=== PATIENT | female | born 1970 | race Two or more races ===

== ENCOUNTER 2016-10-22 14:26 | Emergency (ER) | payer OTHER ==
[~2016-10-22] VITALS: Ht 165.1 cm; Wt 86.2 kg
[~2016-10-22 14:26] MED LIST: IBUPROFEN600 MG ORAL; NORCO 5-325 TA1 EAC1 ORAL; NORCO 5-325 TA1 EACH ORAL; TRAMADOL HCL50 MG ORAL; VALIUM5 MG ORAL
[2016-10-22] MEDS ORDERED: BENAZEPRIL HCL10 MG ORAL (14:48)
[2016-10-22] MEDS ORDERED: ATORVASTATIN CA40 MG ORAL (14:48)
[2016-10-22] MEDS ORDERED: SERTRALINE HCL25 MG ORAL (14:48)
[2016-10-22] MEDS ORDERED: METFORMIN HCL1000 M1 ORAL (14:48)
[2016-10-22] MEDS ORDERED: METFORMIN HCL500 M1 ORAL (14:48)
[2016-10-22] MEDS ORDERED: GLIPIZIDE5 MG ORAL (14:48)
[2016-10-22 14:52] VITALS: BP 142/88
--- NOTE | 2016-10-22 15:13 | Emergency Room Report ---
History of Present Illness General Chief Complaint: Nausea Source: Patient Present Illness HPI The patient is a 46-year-old female presenting for upper abdominal pain and nausea which began after taking diet pills with green tea 2 days prior. The patient describes upper mid abdominal pain as a 5/10 dull ache which occasionally radiates upwards to the mid chest. The patient does admit to a history of GERD and states that this feels similar. The patient denies any other symptoms including vomiting, fever, chills, diarrhea, constipation, rash, CP, SOB, flank pain, dysuria, vaginal DC Allergies: Coded Allergies: No Known Allergies (Unverified , 06/18/14) Patient History Past Medical History: see triage record Pertinent Family History: none Last Menstrual Period: irregular period Now: No Reviewed Nursing Documentation: PMH: Agreed, PSxH: Agreed Nursing Documentation-PMH Past Medical History: No History, Except For Hx Hypertension: Yes Hx Diabetes: Yes Review of Systems All Other Systems: negative except mentioned in HPI Physical Exam Vital Signs Date Time Temp Pulse Resp B/P Pulse Ox O2 Delivery O2 Flow Rate FiO2 10/22/16 14:41 97.9 80 14 142/88 96 Room Air Sp02 EP Interpretation: reviewed, normal General Appearance: no apparent distress, alert, GCS 15, non-toxic Head: normocephalic, atraumatic Eyes: bilateral eye PERRL, bilateral eye normal inspection ENT: hearing grossly normal, normal pharynx, no angioedema, normal voice Gastrointestinal: normal inspection, normal bowel sounds, soft, no mass, non- distended, no guarding, tenderness - epigastric Rectal: deferred Genitourinary: normal inspection, no CVA tenderness Musculoskeletal: back normal, gait/station normal, normal range of motion, non- tender Neurologic: alert, oriented x3, responsive, motor strength/tone normal, sensory intact, speech normal Psychiatric: judgement/insight normal, memory normal, mood/affect normal, no suicidal/homicidal ideation Skin: normal color, no rash, warm/dry, well hydrated Lymphatic: no adenopathy Medical Decision Making PA Attestation Dr. Hinton is my supervising physician. Patient management was discussed with my supervising physician Diagnostic Impression: Primary Impression: GERD (gastroesophageal reflux disease) Qualified Codes: K21.9 - Gastro-esophageal reflux disease without esophagitis ER Course The patient is a 46-year-old female presenting for upper abdominal pain and nausea which began after taking diet pills with green tea 2 days prior Differential diagnoses considered include but not limited to GERD, gastritis, pancreatitis, appendicitis, , UTI PE: Vitals WNL. NAD. Abdomen: Normal appearance. Non distended. No ecchymosis. Normal BS. No McBurney point tenderness. No guarding. TTP over epigastric region only. No CVA tenderness The patient is given Zofran and a GI cocktail and states that she is feeling much better. The patient is instructed to stop taking the diet pills. Patient will be discharged home with a prescription for pepcid and omeprazole.ER precautions given Last Vital Signs Date Time Temp Pulse Resp B/P Pulse Ox O2 Delivery O2 Flow Rate FiO2 10/22/16 14:41 97.9 80 14 142/88 96 Room Air Status: improved Disposition: HOME, SELF-CARE Condition: Improved Scripts Omeprazole (OMEPRAZOLE) 20 Mg Capsule.dr 20 MG ORAL DAILY, #14 CAP Prov: EVA FLETCHER 10/22/16 Famotidine (PEPCID) 40 Mg Tablet 40 MG PO DAILY, #7 TAB 0 Refills Prov: EVA FLETCHER 10/22/16 Referrals: NON PHYSICIAN (PCP) EVA FLETCHER Oct 22, 2016 15:13
[2016-10-22] MEDS ORDERED: Dicyclomine HCl 10mg/5ml oral soln ORAL ONE (15:15)
[2016-10-22] MEDS ORDERED: Lidocaine 2% Visc 15ml soln ORAL ONE (15:15)
[2016-10-22] MEDS ORDERED: Mylanta II UD 30ml ORAL ONE (15:15)
[2016-10-22] MEDS ORDERED: OMEPRAZOLE20 M2 ORAL (15:47)
[2016-10-22] MEDS ORDERED: PEPCID40 MG PO (15:47)
[2016-10-22 16:12] VITALS: BP 138/79
[2016-10-22 16:15] VITALS: BP 142/88
== END 2016-10-22 16:15 | disposition home or self-care (01) ==
LOC: EMR 15:09
DX: K21.9 Gastro-esophageal reflux disease without esophagitis (principal); I10 Essential (primary) hypertension; E11.9 Type 2 diabetes mellitus without complications
CPT/HCPCS: 81025; 99284

== ENCOUNTER 2017-07-23 13:41 | Emergency (ER) | payer MEDICAID, OTHER ==
[~2017-07-23] VITALS: Ht 165.1 cm; Wt 82.6 kg
[~2017-07-23 13:41] MED LIST changes: +ATORVASTATIN CA40 MG ORAL; +BENAZEPRIL HCL10 MG ORAL; +GLIPIZIDE5 MG ORAL; +METFORMIN HCL1000 M1 ORAL; +METFORMIN HCL500 M1 ORAL; +OMEPRAZOLE20 M2 ORAL; +PEPCID40 MG PO; +SERTRALINE HCL25 MG ORAL
[2017-07-23 13:48] VITALS: BP 143/80
[2017-07-23] MEDS ORDERED: BACTRIM DS TAB1 EAC1 ORAL (14:09)
[2017-07-23] MEDS ORDERED: CEPHALEXIN500 MG ORAL (14:09)
[2017-07-23] MEDS ORDERED: IBUPROFEN600 MG ORAL (14:09)
[2017-07-23 14:16] VITALS: BP 133/78
--- NOTE | 2017-07-23 14:33 | Emergency Room Report ---
History of Present Illness General Chief Complaint: Skin Rash/Abscess Source: Patient, Medical Record Present Illness HPI The patient is a 47-year-old female presenting for pain under the left arm which began yesterday. She denies any injury to the area but did notice insect bites in this area in the past week. She has also noticed swelling to the area. Pain is a 9/10 sharp sensation it is worse with touch. Does not radiate. She admits to subjective fever but denies chills. She denies any other symptoms Allergies: Coded Allergies: No Known Allergies (Unverified , 06/18/14) Patient History Past Medical History: see triage record Pertinent Family History: none Last Menstrual Period: 04/01/17 Reviewed Nursing Documentation: PMH: Agreed, PSxH: Agreed Nursing Documentation-PMH Past Medical History: No History, Except For Hx Hypertension: Yes Hx Diabetes: Yes Review of Systems All Other Systems: negative except mentioned in HPI Physical Exam Vital Signs Date Time Temp Pulse Resp B/P (MAP) Pulse Ox O2 Delivery O2 Flow Rate FiO2 07/23/17 13:48 98.4 74 18 143/80 98 Room Air Sp02 EP Interpretation: reviewed, normal General Appearance: no apparent distress, alert, GCS 15, non-toxic Head: normocephalic, atraumatic Eyes: bilateral eye normal inspection, bilateral eye PERRL ENT: hearing grossly normal, normal pharynx, no angioedema, normal voice Neck: full range of motion, supple/symm/no masses Musculoskeletal: back normal, gait/station normal, normal range of motion, non- tender Neurologic: alert, oriented x3, responsive, motor strength/tone normal, sensory intact, speech normal Psychiatric: judgement/insight normal, memory normal, mood/affect normal, no suicidal/homicidal ideation Skin: normal color, no rash, other - TTP to the L axilla Lymphatic: no adenopathy Medical Decision Making PA Attestation Dr. Sullivan is my supervising physician. Patient management was discussed with my supervising physician Diagnostic Impression: Primary Impression: Abscess ER Course The patient is a 47-year-old female presenting for pain under the left arm Differential diagnoses considered but not limited to: abscess, cellulitis, insect bite, contact dermatitis, among others PE: Afebrile. NAD There is tenderness to palpation to the left axilla. No erythema. No induration or fluctuance. There is some soft tissue swelling. The patient will be discharged home with prescription for Keflex and Bactrim and will followup with her primary doctor. I informed her that if symptoms do not improve, she may have to have imaging done to this area. Last Vital Signs Date Time Temp Pulse Resp B/P (MAP) Pulse Ox O2 Delivery O2 Flow Rate FiO2 07/23/17 14:16 98.4 71 16 133/78 99 Room Air Status: improved Disposition: HOME, SELF-CARE Condition: Improved Scripts Ibuprofen* (MOTRIN*) 600 Mg Tablet 600 MG ORAL Q8H Y for For Pain, #30 TAB 0 Refills Prov: EVA FLETCHER.A. 07/23/17 Cephalexin* (KEFLEX*) 500 Mg Capsule 500 MG ORAL EVERY 12 HOURS, #14 CAP 0 Refills Prov: EVA FLETCHER.A. 07/23/17 Trimethoprim/Sulfamethoxazole 160/800* (BACTRIM DS TABLET*) 1 Each Tablet 1 TAB ORAL TWICE A DAY, #14 TAB Prov: EVA FLETCHERA. 07/23/17 Referrals: [facility]ERR[facility] (PCP) Patient Instructions: Abscess Additional Instructions: I discussed my findings with the patient. All questions and concerns have been answered. Treatment and medication compliance have been addressed. I advised the patient that they need to follow up with PMD in 3-5 days. Return to ED if symptoms worsen, new symptoms arise such as fever, or if needed for any reason. Patient verbalized understanding of discharge instructions. EVA FLETCHER Jul 23, 2017 14:33
== END 2017-07-23 14:20 | disposition home or self-care (01) ==
LOC: EMR 14:05
DX: L02.414 Cutaneous abscess of left upper limb (principal); I10 Essential (primary) hypertension; E11.9 Type 2 diabetes mellitus without complications
CPT/HCPCS: 99284

== ENCOUNTER 2018-11-12 07:39 | Emergency (ER) | payer MEDICAID ==
[~2018-11-12] VITALS: Ht 165.1 cm; Wt 85.7 kg
[~2018-11-12 07:39] MED LIST changes: +BACTRIM DS TAB1 EAC1 ORAL; +CEPHALEXIN500 MG ORAL
[2018-11-12 07:59] VITALS: BP 134/77
--- NOTE | 2018-11-12 08:01 | NUR ---
ED Nurse Note:pt. came with abscess on right thumb, no drainage
[2018-11-12] MEDS ORDERED: IBUPROFEN600 MG ORAL (08:02)
[2018-11-12] MEDS ORDERED: AUGMENTIN 875-1 EAC1 ORAL (08:02)
--- NOTE | 2018-11-12 08:06 | Emergency Room Report ---
History of Present Illness General Chief Complaint: Skin Rash/Abscess Source: Patient Present Illness HPI Patient present with complaints of discomfort to her right thumb Reports that she was chewing on her thumb last few days and noticed the area get red today Pain is worse with movement denies any fevers or chills and eyes any wrist pain denies any other trauma Allergies: Coded Allergies: No Known Allergies (Unverified , 06/18/14) Patient History Past Medical History: see triage record Pertinent Family History: none : 4 Reviewed Nursing Documentation: PMH: Agreed; PSxH: Agreed Nursing Documentation-PMH Hx Hypertension: Yes - hyperlipidemia Hx Diabetes: Yes History Of Psychiatric Problem: Yes - depression Review of Systems All Other Systems: negative except mentioned in HPI Physical Exam Vital Signs Date Time Temp Pulse Resp B/P (MAP) Pulse Ox O2 Delivery O2 Flow Rate FiO2 11/12/18 07:42 98.4 76 19 134/77 95 Room Air Sp02 EP Interpretation: reviewed, normal General Appearance: well appearing, no apparent distress Head: normocephalic, atraumatic Eyes: bilateral eye PERRL, bilateral eye EOMI ENT: normal pharynx Neck: supple Cardiovascular #1: regular rate, rhythm Musculoskeletal: other - Small area of erythema at the MIP region dorsally and medially on the right thumb, appears to have almost callus appearance to it with mild underlying erythema, the nailbed is not involved patient is able to move the digit with some discomfort, Neurologic: alert, oriented x3, responsive Skin: other - As above Lymphatic: no adenopathy Procedures Splinting Splinting : Consent: Verbal Location: Right thumb Pre-Made Type: finger splint Splint: Pre-Proc Neuro Vasc Exam: normal Post-Proc Neuro Vasc Exam: normal Patient Tolerated: Well Complications: None Medical Decision Making Diagnostic Impression: Primary Impression: cellulitis ER Course Given that the patient was biting the area some concern about possible early infection No obvious signs of tenosynovitis or abscess formation Patient also had a splint applied for improved sensation and requires close outpatient follow-up Last Vital Signs Date Time Temp Pulse Resp B/P (MAP) Pulse Ox O2 Delivery O2 Flow Rate FiO2 11/12/18 07:59 98.4 78 19 134/77 95 Room Air Status: improved Disposition: HOME, SELF-CARE Condition: Improved Scripts Ibuprofen* (MOTRIN*) 600 Mg Tablet 600 MG ORAL Q8H PRN for For Pain, #20 TAB 0 Refills Prov: Breana Sullivan DO 11/12/18 Amoxicillin/Potassium Clav 875-125* (AUGMENTIN 875-125 TABLET*) 1 Each Tablet 1 TAB ORAL TWICE A DAY, #14 TAB Prov: Breana Sullivan DO 11/12/18 Patient Instructions: Cellulitis, [id number] Additional Instructions: Patient is provided with the discharge instructions notified to follow up with primary doctor in the next 2-3 days otherwise return to the er with any worsening symptoms. Please note that this report is being documented using [employer] technology. This can lead to erroneous entry secondary to incorrect interpretation by the dictating instrument. Breana Sullivan DO Nov 12, 2018 08:06
--- NOTE | 2018-11-12 08:30 | NUR ---
ER DISCHARGE NOTE: Patient is cleared to be discharged per ERMD, pt is aox4, on room air, with stable vital signs. pt was given dc and prescription instructions, pt was able to verbalize understanding, pt is able to ambulate with steady gait. pt took all belongings.
[2018-11-12 11:21] VITALS: BP 134/77
== END 2018-11-12 08:30 | disposition home or self-care (01) ==
LOC: EMR 08:12
DX: L03.011 Cellulitis of right finger (principal); E11.9 Type 2 diabetes mellitus without complications; I10 Essential (primary) hypertension; F32.9 Major depressive disorder, single episode, unspecified; E78.5 Hyperlipidemia, unspecified
CPT/HCPCS: 29130; 99282

== ENCOUNTER 2020-03-03 12:05 | Emergency (ER) | payer MEDICAID ==
[~2020-03-03] VITALS: Ht 165.1 cm; Wt 88.5 kg
[~2020-03-03 12:05] MED LIST changes: +AUGMENTIN 875-1 EAC1 ORAL
[2020-03-03 12:25] VITALS: BP 123/75
[2020-03-03 13:13] LABS: APPEARANCE,URINE CLEAR; BILIRUBIN, URINE NEGATIVE (NEGATIVE); COLOR,URINE PALE YELLOW; GLUCOSE, URINE (UA) 4+ (NEGATIVE); KETONES,URINE NEGATIVE (NEGATIVE); LEUKOCYTE ESTERASE ,URINE 1+ (NEGATIVE); NITRITE,URINE NEGATIVE (NEGATIVE); PH,URINE 5 (4.5-8.0); PROTEIN,URINE 1+ (NEGATIVE); UROBILINOGEN,URINE NORMAL MG/DL (0.0-1.0)
[2020-03-03] MEDS ORDERED: PHENAZOPYRIDIN100 MG ORAL (13:26)
[2020-03-03] MEDS ORDERED: CEPHALEXIN500 MG ORAL (13:26)
--- NOTE | 2020-03-03 13:27 | Emergency Room Report ---
History of Present Illness General Chief Complaint: Female Urogenital Problems Source: Patient Present Illness HPI Patient presents with complaints of burning with urination over the past 3 days she now has seen small tinges of blood she complains of burning with urination still Denies any chest pain or shortness of breath denies any vomiting denies any diarrhea denies any abdominal pain denies any flank pain denies any trauma Allergies: Coded Allergies: No Known Allergies (Unverified , 06/18/14) COVID-19 Screening Contact w/high risk pt: No Recent Travel to affected area: No Experienced COVID-19 symptoms?: No COVID-19 Testing performed STRAIGHTENER HAND: Yes - 02/05/2020 COVID-19 Screening: Negative COVID-19 COVID-19 Testing Source: nasopharyngeal Patient History Past Medical History: see triage record Last Menstrual Period: 2016 Reviewed Nursing Documentation: PMH: Agreed; PSxH: Agreed Nursing Documentation-PM Past Medical History: No History, Except For Hx Hypertension: Yes Hx Diabetes: Yes Review of Systems All Other Systems: negative except mentioned in HPI Physical Exam Vital Signs Date Time Temp Pulse Resp B/P (MAP) Pulse Ox O2 Delivery O2 Flow Rate FiO2 03/03/20 12:10 98.8 77 18 123/75 (91) 100 Room Air Sp02 EP Interpretation: reviewed, normal General Appearance: well appearing, no apparent distress Head: normocephalic, atraumatic Eyes: bilateral eye PERRL, bilateral eye EOMI ENT: hearing grossly normal, normal pharynx, TMs + canals normal, uvula midline Neck: full range of motion, supple, no meningismus, no bony tend Respiratory: lungs clear, normal breath sounds, no rhonchi, no respiratory distress, no retraction, no accessory muscle use Cardiovascular #1: normal peripheral pulses, regular rate, rhythm, no edema, no gallop, no JVD, no murmur Gastrointestinal: normal bowel sounds, non tender, soft, no mass, no organomegaly, non-distended, no guarding, no hernia, no pulsatile mass, no rebound Genitourinary: no CVA tenderness Musculoskeletal: normal inspection Neurologic: motor strength/tone normal, anode rebuilder III-XII nml as tested, oriented x3 , sensory intact, responsive Psychiatric: mood/affect normal Skin: no rash Lymphatic: normal inspection, no adenopathy Medical Decision Making Diagnostic Impression: Primary Impression: uti ER Course Multiple differentials including but not limited to the antibiotic pyelonephritis fistulas entertained patient is resting comfortably does not appear in acute distress,, urine sample does show white blood cells and small count of blood patient appears to have findings consistent with hemorrhagic cystitis will have initial conservative outpatient trial with antibiotics return with any changes or concerns Labs Test 03/03/20 12:16 Urine Color Pale yellow Urine Appearance Clear Urine pH 5 (4.5-8.0) Urine Specific [place] 1.020 (1.005-1.035) Urine Protein 1+ (NEGATIVE) Urine Glucose (UA) 4+ (NEGATIVE) Urine Ketones Negative (NEGATIVE) Urine Blood 1+ (NEGATIVE) Urine Nitrite Negative (NEGATIVE) Urine Bilirubin Negative (NEGATIVE) Urine Urobilinogen Normal MG/DL (0.0-1.0) Urine Leukocyte Esterase 1+ (NEGATIVE) Urine RBC 0-2 /HPF (0 - 2) Urine WBC 5-10 /HPF (0 - 2) Urine Squamous Epithelial Cells Few /LPF (NONE/OCC) Urine Bacteria Few /HPF (NONE) Urine Trichomonas Occasional /HPF (NONE) Urine HCG, Qualitative Negative (NEGATIVE) Last Vital Signs Date Time Temp Pulse Resp B/P (MAP) Pulse Ox O2 Delivery O2 Flow Rate FiO2 03/03/20 12:25 98.8 18 123/75 100 Room Air 03/03/20 12:10 77 Status: improved Disposition: HOME, SELF-CARE Condition: Improved Scripts Phenazopyridine Hcl* (PYRIDIUM*) 100 Mg Tablet 100 MG ORAL THREE TIMES A DAY, #9 TAB Prov: Breana Sullivan DO 03/03/20 Cephalexin* (KEFLEX*) 500 Mg Capsule 500 MG ORAL EVERY 6 HOURS for 7 Days, CAP Prov: Breana Sullivan DO 03/03/20 Referrals: NON PHYSICIAN (PCP) [facility] Patient Instructions: Urinary Tract Infection Additional Instructions: Patient is provided with the discharge instructions notified to follow up with primary doctor in the next 2-3 days otherwise return to the er with any worsening symptoms. Please note that this report is being documented using [employer] technology. This can lead to erroneous entry secondary to incorrect interpretation by the dictating instrument. Breana Sullivan DO Mar 03, 2020 13:27
[2020-03-03] MEDS ORDERED: Phenazopyridine 200mg tab ORAL ONE (13:30)
[2020-03-03] MEDS ORDERED: Cephalexin 500mg cap ORAL ONE (13:30)
[2020-03-03 13:32] VITALS: BP 124/76
== END 2020-03-03 13:32 | disposition home or self-care (01) ==
LOC: EMR 12:25
DX: N39.0 Urinary tract infection, site not specified (principal); E11.9 Type 2 diabetes mellitus without complications; I10 Essential (primary) hypertension
CPT/HCPCS: 81003; 81025; Z7502; 99283

== ENCOUNTER 2020-06-18 16:28 | Emergency (ER) | payer MEDICAID ==
[~2020-06-18] VITALS: Ht 165.1 cm; Wt 81.6 kg
[~2020-06-18 16:28] MED LIST changes: +PHENAZOPYRIDIN100 MG ORAL
--- NOTE | 2020-06-18 16:49 | NUR ---
ED Nurse Note: Pt walked in from home c/o blister like sore on right middle finger x 4 days. Pt reports tender to touch. Respirtions even and unlabored on room air. Vitals stable as documented. A+Ox4, speaking in complete sentences.
[2020-06-18 16:50] VITALS: BP 157/81
[2020-06-18] MEDS ORDERED: Naproxen 500mg tab ORAL ONE (17:00)
[2020-06-18] MEDS ORDERED: Cephalexin 500mg cap ORAL ONE (17:00)
--- NOTE | 2020-06-18 17:29 | Emergency Room Report ---
History of Present Illness General Chief Complaint: Skin Rash/Abscess Source: Patient Present Illness HPI 49-year-old female with history of type 2 diabetes currently taking insulin and metformin here complaining of a painful rash that she noticed on right third finger x2 days. Does not recall how it happened. Appears to be a puncture wound with infection. Denies any fall or injury. Has full range of motion of the affected area, and is neurovascularly intact. Denies any tingling numbness. Also reports that she has history of arthritis and is asking for something that will help with her arthritis pain. Denies fever and chills, chest pain, shortness of breath, headache and dizziness. Has not taken medication for symptom relief. Patient is up-to-date with tetanus shot. Allergies: Coded Allergies: No Known Allergies (Unverified , 06/18/14) COVID-19 Screening Contact w/high risk pt: No Recent Travel to affected area: No Experienced COVID-19 symptoms?: No COVID-19 Testing performed NUTRITION HELPER: No Patient History Past Medical History: see triage record Past Surgical History: none Pertinent Family History: none Last Menstrual Period: na Now: No Immunizations: UTD Reviewed Nursing Documentation: PMH: Agreed; PSxH: Agreed Nursing Documentation-PMH Past Medical History: No History, Except For Hx Hypertension: Yes Hx Diabetes: Yes Review of Systems All Other Systems: negative except mentioned in HPI Physical Exam Vital Signs Date Time Temp Pulse Resp B/P (MAP) Pulse Ox O2 Delivery O2 Flow Rate FiO2 06/18/20 16:41 97.5 73 18 169/86 (113) 98 Room Air Sp02 EP Interpretation: reviewed, normal General Appearance: no apparent distress, alert, GCS 15, non-toxic Head: normocephalic, atraumatic Eyes: bilateral eye normal inspection, bilateral eye PERRL ENT: hearing grossly normal, normal pharynx, no angioedema, normal voice Neck: full range of motion, supple/symm/no masses Respiratory: chest non-tender, lungs clear, normal breath sounds, speaking full sentences Cardiovascular #1: regular rate, rhythm, no edema Cardiovascular #2: 2+ radial (R), 2+ radial (L) Gastrointestinal: normal bowel sounds, non tender, soft, non-distended, no guarding, no rebound Musculoskeletal: back normal, non-tender, other - No crepitus noted, infected puncture wound dorsum of right third finger Neurologic: alert, motor strength/tone normal, oriented x3, sensory intact, responsive, speech normal Psychiatric: judgement/insight normal, memory normal, mood/affect normal, no suicidal/homicidal ideation Skin: other - Puncture wound with infection right third finger Lymphatic: no adenopathy Medical Decision Making PA Attestation All my diagnosis and treatment plans were reviewed ad discussed with my supervising physician Dr. Abebe Diagnostic Impression: Primary Impression: Cellulitis Additional Impressions: Puncture wound Arthritis ER Course 49-year-old female with history of type 2 diabetes currently taking insulin and metformin here complaining of a painful rash that she noticed on right third finger x2 days. Does not recall how it happened. Appears to be a puncture woun d with infection. Denies any fall or injury. Has full range of motion of the affected area, and is neurovascularly intact. Denies any tingling numbness. Also reports that she has history of arthritis and is asking for something that will help with her arthritis pain. Denies fever and chills, chest pain, shortness of breath, headache and dizziness. Has not taken medication for symptom relief. Patient is up-to-date with tetanus shot. Ddx considered but are not limited to : Cellulitis, gangrene he is found,, superficial infection, abscess Vital signs: are WNL, pt. is afebrile H&PE are most consistent with: Cellulitis, puncture wound, arthritis ORDERS: Right hand x-ray, Keflex, naproxen to treat both arthritic pain and pain coming from the infected wound ED INTERVENTIONS: First dose of Keflex, wound clean and dressed DISCHARGE: At this time pt. is stable for d/c to home. Will provide printed patient care instructions, and any necessary prescriptions. Care plan and follow up instructions have been discussed with the patient prior to discharge. Take medication as directed, follow primary care provider, return to emergency room Other X-Ray Diagnostic Results Other X-Ray Diagnostic Results : X-Ray ordered: Right hand # of Views/Limited Vs Complete: 3 View Indication: Pain EP Interpretation: Yes PA Xray: Interpretation reviewed, by supervising MD, and agrees with findings. Interpretation: no dislocation, no soft tissue swelling, no fractures, other - No osteomyelitis Impression: No acute disease Electronically Signed by: Juventino Bhatti PA-C Last Vital Signs Date Time Temp Pulse Resp B/P (MAP) Pulse Ox O2 Delivery O2 Flow Rate FiO2 06/18/20 16:50 97.3 77 18 157/81 99 Room Air Disposition: HOME, SELF-CARE Condition: Stable Scripts Cephalexin* (KEFLEX*) 500 Mg Capsule 500 MG ORAL EVERY 6 HOURS for 7 Days, #28 CAP Prov: Juventino Sheriff 06/18/20 Naproxen* (NAPROXEN*) 500 Mg Tablet 500 MG ORAL TWICE A WEEK, #60 TAB 0 Refills Prov: Juventino Sheriff 06/18/20 Referrals[facility] ([facility]P) Patient Instructions: Arthritis, [id number], Cellulitis, [id number], Puncture Wound, [id number] Additional Instructions: , Follow-up primary care provider, worsening symptoms return to emergency room Juventino Sheriff Jun 18, 2020 17:29
[2020-06-18] MEDS ORDERED: NAPROXEN500 M2 ORAL (17:30)
[2020-06-18] MEDS ORDERED: CEPHALEXIN500 MG ORAL (17:30)
[2020-06-18 17:40] VITALS: BP 151/74
--- NOTE | 2020-06-18 17:40 | NUR ---
ED Nurse Note: Pt cleared by health care Provider for discharge. DC instructions/prescription was given and explained to pt and verbalized understanding of teachings. All medical deviecs such as ID band removed. Pt is AAO x4, ambulatory and left with all personal belongings.
--- NOTE | 2020-06-19 16:30 | Diagnostic Imaging Report ---
Indication: Right hand pain Technique: 3 views right hand Comparison: none Findings: No acute fractures. No dislocations. Joint spaces are preserved. Impression: Negative
== END 2020-06-18 17:40 | disposition home or self-care (01) ==
LOC: EMR 16:51
DX: L03.90 Cellulitis, unspecified (principal); S61.232A Puncture wound without foreign body of right middle finger without damage to nail, initial encounter; E11.9 Type 2 diabetes mellitus without complications; I10 Essential (primary) hypertension; Z79.4 Long term (current) use of insulin; X58.XXXA Exposure to other specified factors, initial encounter; Y92.9 Unspecified place or not applicable; M19.90 Unspecified osteoarthritis, unspecified site; B99.9 Unspecified infectious disease
CPT/HCPCS: 73130; Z7502; 99283

== ENCOUNTER 2020-09-30 17:40 | Emergency (ER) | payer MEDICAID ==
[~2020-09-30] VITALS: Ht 165.1 cm; Wt 85.3 kg
[~2020-09-30 17:40] MED LIST changes: +NAPROXEN500 M2 ORAL
[2020-09-30 17:58] VITALS: BP 147/86
--- NOTE | 2020-09-30 17:58 | NUR ---
ED Nurse Note: Pt walked in to ED c/o lump to left armpit x3 days, unk cause. Pt reports pain. AAOx4, no SOB. Afebrile. ERPA at bedside.
[2020-09-30] MEDS ORDERED: DOXYCYCLINE MO100 MG ORAL (18:11)
--- NOTE | 2020-09-30 18:16 | Emergency Room Report ---
History of Present Illness General Chief Complaint: Skin Rash/Abscess Present Illness HPI 50-year-old female with history of frequent episodes of cellulitis here with left armpit painful mass for 2 days. Patient says she first noticed it 2 days ago and says it feels slightly larger and more painful today. Patient recently had the COVID-19 vaccination in her left shoulder. Denies fevers, chills, chest pain, palpitation of shortness of breath, back pain, abdominal pain, nausea, vomiting, diarrhea, dysuria, skin changes. Allergies: Coded Allergies: No Known Allergies (Unverified , 06/18/14) COVID-19 Screening Contact w/high risk pt: No Recent Travel to affected area: No Experienced COVID-19 symptoms?: No COVID-19 Testing performed AUDIOLOGIST: Yes - 2 weeks ago COVID-19 Screening: Negative COVID-19 COVID-19 Testing Source: clinic Patient History Now: No Nursing Documentation-PMH Hx Hypertension: Yes Hx Diabetes: Yes Review of Systems All Other Systems: negative except mentioned in HPI Physical Exam Vital Signs Date Time Temp Pulse Resp B/P (MAP) Pulse Ox O2 Delivery O2 Flow Rate FiO2 09/30/20 17:53 98.2 85 19 147/86 (106) 95 Room Air Sp02 EP Interpretation: reviewed, normal General Appearance: no apparent distress, alert, non-toxic Head: normocephalic, atraumatic Eyes: bilateral eye normal inspection, bilateral eye PERRL ENT: hearing grossly normal, normal pharynx, no angioedema, normal voice Neck: full range of motion, supple/symm/no masses Respiratory: chest non-tender, lungs clear, normal breath sounds, speaking full sentences Cardiovascular #1: regular rate, rhythm, no edema Cardiovascular #2: 2+ carotid (R), 2+ carotid (L), 2+ radial (R), 2+ radial (L), 2+ dorsalis pedis (R), 2+ dorsalis pedis (L) Gastrointestinal: normal bowel sounds, non tender, soft, non-distended, no guarding, no rebound Rectal: deferred Genitourinary: normal inspection, no CVA tenderness Musculoskeletal: back normal, normal range of motion, gait/station normal, non- tender Neurologic: alert, motor strength/tone normal, oriented x3, sensory intact, responsive, speech normal Psychiatric: judgement/insight normal, memory normal, mood/affect normal, no suicidal/homicidal ideation Lymphatic: other - Small 1 cm mobile mass in the left axilla. Mild tenderness on palpation. No overlying skin change Medical Decision Making Diagnostic Impression: Primary Impression: Abscess ER Course 50-year-old female here with painful mass of left axilla. Patient was hemodynamically stable and neurovascular intact in the emergency department. She recently had a COVID-19 vaccination on her left shoulder. Physical exam revealed possible deep abscess versus reactive lymph node. However there were no overlying skin changes. No evidence of cellulitis. Patient was given prescription for doxycycline to treat possible abscess. Told to return with any worsening symptoms. Discharged in stable condition. Last Vital Signs Date Time Temp Pulse Resp B/P (MAP) Pulse Ox O2 Delivery O2 Flow Rate FiO2 09/30/20 17:58 98.2 85 19 147/86 95 Room Air Disposition: HOME, SELF-CARE Condition: Stable Scripts Doxycycline Monohydrate* (DOXYCYCLINE MONOHYDRATE*) 100 Mg Capsule 100 MG ORAL Q12H, #14 CAP 0 Refills Prov: Addison Marcelino M.D. 09/30/20 Referrals: Counts Include [facility] [place] [facility] Patient Instructions: Abscess Additional Instructions: Please follow-up with your primary care doctor in the next 1 to 3 days to discuss this emergency department visit and for reevaluation. If you have any ne w or worsening symptoms please return to the emergency department for reevaluation. Addison Marcelino M.D. Sep 30, 2020 18:16
[2020-09-30 18:49] VITALS: BP 147/86
--- NOTE | 2020-09-30 18:49 | NUR ---
ED Nurse Note: Pt cleared by ERPA for discharge. DC instructions/prescription was given and explained to pt and verbalized understanding of teachings. All medical deviecs such as ID band removed. Pt is AAO x4, ambulatory and left with all personal belongings.
== END 2020-09-30 18:29 | disposition home or self-care (01) ==
LOC: EMR 18:00
DX: L02.412 Cutaneous abscess of left axilla (principal); I10 Essential (primary) hypertension; E11.9 Type 2 diabetes mellitus without complications
CPT/HCPCS: 99282